=== PATIENT | female | born 1950 | race Caucasian/White ===

== ENCOUNTER 2016-08-22 08:17 | Emergency (ER) | payer MEDICARE ==
[2016-08-22 08:17] VITALS: BMI 19.7
[2016-08-22 08:24] VITALS: TEMP 97.6
--- NOTE | 2016-08-22 08:47 | EDPRACDOC ---
- General Information Chief Complaint: Dyspnea/Resp distress Stated Complaint: DIFFICULTY BREATHING/HEADACHE Time Seen by Provider: 08/22/16 08:41 Information Source: Patient Home Medications: Home Medications Aspirin (Enteric Coated) [Halfprin] 81 mg PO DAILY #90 tab 10/19/14 Sulfasalazine [Sulfasalazine Dr] 1,000 mg PO BID #120 tablet.dr 10/19/14 Albuterol/Ipratropium Neb [Duoneb] 3 ml NEB Q6H PRN 04/02/16 Alprazolam [Xanax] 1 mg PO DAILY 04/02/16 Cholecalciferol (Vitamin D3) [Vitamin D3] 1,000 unit PO BID 04/02/16 Fluticasone Propionate [Flonase Nasal [place]] 2 spray JUAN M DAILY 04/02/16 Levothyroxine Sodium [Synthroid] 75 mcg PO DAILY 04/02/16 Omeprazole Magnesium [Prilosec Otc] 20 mg PO DAILY 04/02/16 Hydrochlorothiazide 25 mg PO DAILY 08/15/16 Hydrocodone Bit/Acetaminophen [[place] 5-325 Tablet] 1 tab PO BID PRN 08/15/16 Nebulizer [Erapid Nebulizer] 1 each MC .UNKNOWN 08/15/16 Prednisone [Deltasone, Orasone] 20 mg PO BID #10 tab 08/15/16 Azithromycin [Zithromax] 0 mg PO DAILY #6 tablet 08/22/16 Hydrocodone Bit/Homatropine [Hycodan Syrup] 5 ml PO Q6 PRN #120 syrup 08/22/16 Prednisone [Deltasone, Orasone] 40 mg PO DAILY 5 Days 08/22/16 Allergies/Adverse Reactions: Allergies Allergy/AdvReac Type Severity Reaction Status Date / Time No Known Allergies Allergy Verified 08/22/16 08:21 - History of Present Illness Onset: 0300 HPI: PT COMPLAINS OF SOBR, COUGH PROD OF YELLOW PHLEGM, "TIGHTNESS" IN LEFT CHEST, ONSET AT 0300 TODAY, PT USING NEBS AND OXYGEN AT HOME WITHOUT RELIEF, PT ALSO COMPLAINS OF HEADACHE, NO FEVER, HAS HAD SOME VOMITING. PT HAS HX OF COPD, ON OXYGENT AT HOME, CONTINUES TO SMOKE. Shortness of Breath: Severe Relevant History: Reports: COPD, Heart Failure (CHF) Cough: Reports: Productive, Yellow Rhinorrhea: Reports: Clear Ear Symptoms: Reports: None SOB Worsens with: Reports: Nothing SOB Improves with: Reports: Nothing Recently treated infections:: Denies: Otitis media, Pneumonia, URI Associated Signs and symptoms: Reports: Cough, Headache, Nasal Symptoms, Nausea , Vomiting. Denies: Earache, Fever, Sore Throat, Diarrhea, Myalgia, Rash, Pain with head movement, AMS ED Past Medical History - History Reviewed Yes Nurses notes reviewed and agree except as marked - Patient Medical History Neurological History: Reports: Cerebrovascular Accident (NO MEDICAL DIAGNOSIS OF CVA. PATIENT STATES LEFT SIDE WEAKER THAN RIGHT. ) Cardiac History: Reports: Coronary Artery Disease, Hypertension, Congestive Heart Failure (RIGHT SIDED HEART FAILURE), Stress Test (Sep 2014), Hypercholesterolemia. Denies: Heart Attack (NO MEDICAL HISTORY OF ME.. PATIENT STATED SHE HAD MILD ME IN 09/2014) Respiratory History: Reports: COPD (WITH COPD EXACERBATION 09/2014, 12/2014 AND 12/2015 REQUIRING BIPAP), Cough, Pneumonia (09/2014 AND 12/2014), Emphysema GI/ History: Reports: Gastroesophageal Reflux, Ulcer (Peptic ulcer disease with ruptured ulcer approximately 8 years ago.), Diverticulosis Musculoskeletal History: Reports: Arthritis (SHOULDER, NECK, HANDS) Psychological History: Reports: Anxiety. Denies: Depression, Substance Use Disorder Systemic History: Reports: Diabetes, Hypothyroidism Surgical History: Reports: Appendectomy, Cholecystectomy, Hysterectomy (Partial) , Other (Repair of ruptured ulcer, left index finger amputation distal phalanx) - Family Medical History Reports: Hypertension (mother), Diabetes (MGM, mother), Cancer (father - lung; MGM- ovarian), Cardiac Disorders (PGF- ME, brother- CAD, mother-CHF). Denies: Stroke - Social Medical History Smoking Status: Heavy tobacco smoker (5 or more cigarettes/day or daily pipe/ cigar) Social History: Denies: Marijuana Use, Substance Use Disorder ETOH: None Substance Abuse: None EDM Review of Systems - Review of Systems Constitutional: negative: Chills, Fever Eyes: negative: Blurred Vision, Double Vision Ears: negative: Drainage Throat: negative: Pain Nose: Congestion. negative: Discharge Respiratory: Cough, Shortness of Breath, Wheezing Cardiovascular: Chest Pain. negative: Palpitations Gastrointestinal: Nausea, Vomiting. negative: Diarrhea, Pain Genitourinary: negative: Dysuria, Frequency Neurological: Headache. negative: Dizziness, Numbness, Weakness Musculoskeletal: No Symptoms Reported Integumentary: No Symptoms Reported - Physical Exam Constitutional: Alert (Awake), No apparent distress Oriented to: Time, Person, Place Last recorded Vital Signs: Last Vital Signs Temp 97.6 F 08/22/16 08:21 Pulse 66 08/22/16 08:33 Resp 22 08/22/16 08:33 BP 170/93 08/22/16 08:33 Pulse Ox 93 08/22/16 08:33 Oxygen Pulse Oxygen Saturation 93 O2 Device Nasal Cannula Oxygen Flow Rate 3 Fraction of Inspired Oxygen ( FIO2) - HEENT Head: Normal ( normocephalic) Eye Exam: Normal (PERRL, EOMI, Sclera white) Oropharynx: Normal (Pharynx:Moist without exudate,Gums-no swelling) Tympanic Membrane: Normal ENT EAC: Normal TMJ: Normal Nose: No Symptoms Reported (septum midline) Neck: Normal (FROM, trachea at midline) - Respiratory/Cardiovascular Respiratory: Accessory Muscle Use, Diminished Cardiovascular: Normal (RRR without murmur, gallop or rub) - GI Auscultation: Normal (NABS) Palpation: Normal (Soft,No rebound or guarding, non distended) Tenderness: Non tender Grajeda's Sign: Negative - Musculoskeletal Back: Normal (Non-Tender) Extremities: Normal (Normal tone, Pulses 2+ No cyanosis or edema, FROM) - Integumentary Skin: Normal, Warm, Dry Lymphatics: Normal (no adenopathy) - Neurologic Memory Impaired: Normal Motor Function: Normal (Normal tone, Pulses 2+ No cyanosis or edema, FROM) Cranial Nerve: Normal (CN II-X11 intact sensation, strength 5/5) Cerebellar: Normal Mood Description: Normal Perception: Normal ED SOB MDM - Differential Diagnosis Differential Diagnosis: Heart Failure, Pnuemonia - Re-evaluation Re-evaluation 1 Re-evaluation Time: 10:30 (BREATHING IS BETTER, HAS HEADACHE) Re-evaluation 2 Re-evaluation Time: 12:17 (2ND TROP NEG, FEELING BETTER) - Results Result Diagrams: 08/22/16 08:30 08/22/16 08:30 - EKG EKG #1 EKG Time: 10:15 -: Yes EKG interpreted by me Rate: bpm: 61 [place]: RAD Rhythm: NSR Block: None Hypertrophy: None ST: Nonsp Comparison: 08/15/16 (NO CHANGE) - Diagnostic Imaging CXR Image interpreted by: Radiologist Diagnostic Imaging Comments: CHEST 2 VIEW COMPARISON: 08/15/2016 FINDINGS: Cardiomegaly with negative aortic and hilar contours. There is diffuse interstitial coarsening above baseline superimposed on chronic hyperinflation. No effusion or pneumothorax. No focal consolidation. Remote left rib trauma. IMPRESSION: 1. Interstitial coarsening above baseline which could be bronchitic or congestive. 2. COPD. Decision Time to Discharge: 12:17 - Departure Disposition: Home Condition: Stable Final Diagnosis: Acute bronchitis Instructions: Acute Bronchitis (ED) Education/Counseling Given To: Patient Education/Counseling Given Regarding: Diagnosis, Treatment, Prognosis, Follow Up Referrals: Roxy Smart MD [Primary Care Provider] - One Week Prescriptions: Azithromycin [Zithromax] 0 mg PO DAILY #6 tablet Hydrocodone Bit/Homatropine [Hycodan Syrup] 5 ml PO Q6 PRN #120 syrup PRN Reason: Cough Prednisone [Deltasone, Orasone] 40 mg PO DAILY 5 Days Additional Instructions: Rest, drink plenty of fluids, use Tylenol every 4 hours and Motrin every 6 hours as needed for pain or fever, return to the ED for any worsening symptoms or concerns. PLEASE STOP SMOKING!!
[2016-08-22] MEDS ORDERED: METHYLPREDNISOLONE 125 MG/2 ML VIAL IV ONE (08:48)
[2016-08-22] MEDS ORDERED: SODIUM CHLORIDE 0.9% 10 ML FLUSH FLUSH PRN (08:48)
[2016-08-22] MEDS ORDERED: Albuterol/Ipratropium Neb 3 ML NEB NEB ONE ×2 (08:48→11:06)
[2016-08-22 09:07] LABS: AUTOMATED BASOPHIL 0.4 % (0-2); AUTOMATED EOSINOPHIL 0.3 % (0-5); AUTOMATED LYMPH 26.5 % (17-44); AUTOMATED NEUTROPHIL 63.8 % (45-76)
[2016-08-22 09:13] LABS: ALLEN'S TEST PASS; BEb 13.6 (+/- 2); TCO2 42.1 MMOL/L (23-27)
[2016-08-22 09:14] LABS: ABG Draw Site Right Radial
[2016-08-22 09:24] LABS: BLOOD UREA NITROGEN 5 MG/DL (7-17); CALCIUM 9.5 MG/DL (8.4-10.2); CALCULATED OSMOLALITY 257 MOs/Kg (270-290); CHLORIDE 86 mEq/L (98-107); GLUCOSE 94 MG/DL (70-99); SODIUM LEVEL 135 mEq/L (137-146); TOTAL PROTEIN 8.1 G/DL (6.3-8.2)
[2016-08-22 09:32] LABS: PARTIAL THROMB. TIME 25.9 SEC (22-35); PT-INR 1.1
--- NOTE | 2016-08-22 10:05 | DIRPT ---
CLINICAL DATA: Shortness of breath and productive cough. Chest tightness COPD on home oxygen EXAM: CHEST 2 VIEW COMPARISON: 08/15/2016 FINDINGS: Cardiomegaly with negative aortic and hilar contours. There is diffuse interstitial coarsening above baseline superimposed on chronic hyperinflation. No effusion or pneumothorax. No focal consolidation. Remote left rib trauma. IMPRESSION: 1. Interstitial coarsening above baseline which could be bronchitic or congestive. 2. COPD. Electronically Signed By: Cole Burton M.D. On: 08/22/2016 10:03
[2016-08-22] MEDS ORDERED: ACETAMINOPHEN 325 MG/TAB TABLET PO ONE (10:25)
[2016-08-22] MEDS ORDERED: POTASSIUM CHLORIDE 20 MEQ/15 ML ORAL SOLN PO ONE (11:06)
[2016-08-22 19:48] VITALS: BP 134/71; PULSE 74
== END 2016-08-22 12:35 | disposition home or self-care (01) ==
LOC: ED 08:17
DX: J44.0 Chronic obstructive pulmonary disease with (acute) lower respiratory infection (principal); J20.9 Acute bronchitis, unspecified; F17.200 Nicotine dependence, unspecified, uncomplicated; E11.9 Type 2 diabetes mellitus without complications; E03.9 Hypothyroidism, unspecified; F41.9 Anxiety disorder, unspecified; K21.9 Gastro-esophageal reflux disease without esophagitis; I25.10 Atherosclerotic heart disease of native coronary artery without angina pectoris; I10 Essential (primary) hypertension; I50.9 Heart failure, unspecified; E78.00 Pure hypercholesterolemia, unspecified; Z79.899 Other long term (current) drug therapy
CPT/HCPCS: 36415; 36600; 71020; 80053; 82803; 83605; 83690; 83880; 84484; 85025; 85610; 85730; 87040; 93005; 94640; 96374; 99285; A9270; J2930; J3490; J7620